=== PATIENT | female | born 1995 | race Hispanic/Latino ===

== ENCOUNTER 2017-12-29 08:58 | Outpatient (CLI) | payer MEDICAID ==
--- NOTE | 2017-12-29 11:30 | ULT ---
PELVIS SONOGRAM: HISTORY: Right pelvic pain. TECHNIQUE: Transabdominal imaging with duplex evaluation. FINDINGS: The urinary bladder is unremarkable. The uterus has a homogeneous echotexture and is 7.2 cm. The en dometrium is 0.2 cm. No free fluid. The right ovary is 3.2 cm and the left is 3.8 cm. Each contains follicles and demonstrate good color and spectral Doppler flow. IMPRESSION: Normal pelvic sonogram. POS: [facility]
== END 2017-12-29 08:59 | disposition home or self-care (01) ==
LOC: ULT 08:58
DX: R10.31 Right lower quadrant pain (principal); Z87.42 Personal history of other diseases of the female genital tract
CPT/HCPCS: 76856; 93976

== ENCOUNTER 2018-01-02 12:22 | Emergency (ER) | payer MEDICAID, SELFPAY ==
[~2018-01-02 12:22] MED LIST: ISOVUE-370 76%-LOCM 1 ML ONE
[2018-01-02 13:55] LABS: Mean Corpuscular HGB CONC 31.3 g/dL (32.0-36.0); Mean Corpuscular Hemoglobin 22.4 pg (27.0-31.0); Mean Corpuscular Volume 71.5 fL (78.0-98.0); Mean Platelet Volume 9.5 fL (7.4-10.4); Platelet Count 279 thou/uL (130-400); RBC Distribution Width 15.7 % (11.5-14.5); Red Blood Cell (RBC) Count 4.89 mill/uL (4.20-5.40); White Blood Cell (WBC) Count 6.4 thou/uL (4.8-10.8)
[2018-01-02 14:05] LABS: ALT (SGPT) 11 U/L (8-55); AST (SGOT) 14 U/L (5-34); Albumin 4.8 g/dL (3.5-5.0); Alkaline Phosphatase 101 U/L (40-150); Anion Gap 11 mmol/L (10-20); BUN (Urea Nitrogen) 13 mg/dL (7.0-18.7); Bilirubin, Total 0.4 mg/dL (0.2-1.2); Calc. Creatinine Clearance 0 mL/min (70-130); Calcium 9.6 mg/dL (7.8-10.44); Carbon Dioxide 25 mmol/L (22-29); Chloride 104 mmol/L (98-107); Estimated GFR-MDRD 81; Globulin 3.8 g/dL (2.4-3.5); Glucose 86 mg/dL (70-105); Lipase 9 U/L (8-78); Potassium 3.6 mmol/L (3.5-5.1); Protein, Total 8.6 g/dL (6.0-8.3); Sodium 136 mmol/L (136-145)
[2018-01-02 14:35] LABS: Bilirubin Negative (Negative); Blood, Urine Moderate (Negative); Clarity CLEAR (Clear); Glucose, Urine (Dipstick) Negative (Negative); Leukocyte Negative (Negative); Nitrite Negative (Negative); Protein, Urine (Dipstick) Negative (Neg-Trace); Specific Gravity, Urine 1.008 (1.002-1.036); Urobilinogen 0.2 mg/dL (0.2-1.0); pH, Urine 6.5 (5.0-9.0)
[2018-01-02 14:36] LABS: #Basophils 0.1 thou/uL (0.0-0.2); #Lymphocytes 2.4 thou/uL (1.20-3.40); #Monocytes 0.6 thou/uL (0.11-0.59); #Neutrophils 3.4 thou/uL (1.40-6.50); %Basophils 1.2 % (0.0-1.0); %Eosinophils 0.3 % (0.0-10.0); %Lymphocytes 37.8 % (21.0-51.0); %Monocytes 8.5 % (0.0-10.0); %Neutrophils 52.2 % (42.0-75.0); Anisocytosis SLIGHT = 6-15 cells (100X) (0-5/hpf); Hypochromia SLIGHT = 6-15 cells (100X) (0-5/hpf); MDiff Complete? YES; Microcytosis SLIGHT = 6-15 cells (100X) (0-5/hpf); Ovalocytes SLIGHT = 2-5 cells (100X) (0-1/hpf); PLT Morphology Comment Appears Adequate
[2018-01-02 14:38] LABS: Bacteria/HPF None Seen HPF (None Seen); Hyaline Casts/LPF 0-3 HYALINE CAST LPF (0-3 Hyaline); Pathc Cast-AUWi Flag 0.29 (0-2.49); Pregnancy Test - Urine (BHCG) Negative (Negative); Pregu Control Background? CLEAR/WHITE (CLR/WHITE); Pregu Control Bar Appear? YES (CONTROL BAR); Specific Gravity 1.008 (1.002-1.036); Squamous Epithelial 0-3 HPF (0-3); WBC/HPF None Seen HPF (0-3)
[2018-01-02] MEDS ORDERED: Ketorolac Tromethamine 30 MG/ML VIAL ONE (14:41)
[2018-01-02] MEDS ORDERED: Ketorolac Tromethamine 60 MG/2 ML VIAL ONE (14:42)
--- NOTE | 2018-01-02 16:16 | ULT ---
GALLBLADDER ULTRASOUND: Date: 01/02/18 HISTORY: Right upper quadrant pain. FINDINGS: Real-time imaging of the right upper quadrant shows a normal appearing gallbladder. Common duct is 2. 0 mm. Technologist reports a negative ultrasound Quiroz's sign. Visualized liver parenchyma shows no focal abnormalities. Right kidney is normal in size and not obstructed. Pancreas region is fairly wel l imaged and appears unremarkable. IMPRESSION: Unremarkable gallbladder ultrasound. POS: [facility]
[2018-01-02] MEDS ORDERED: Famotidine/PF 20 mg/2ml Vial ONE (17:03)
[2018-01-02] MEDS ORDERED: Dicyclomine 20 MG TAB ONE (17:03)
[2018-01-02] MEDS ORDERED: Ondansetron HCl/PF 4 MG/2 ML Vial ONE (17:03)
--- NOTE | 2018-01-02 20:25 | CT ---
NONCONTRAST ENHANCED CT IMAGES ABDOMEN AND PELVIS 01/02/18 HISTORY: Abdominal pain. Noncontrast enhanced CT images abdomen and pelvis obtained. Oral and IV contrast was not given. This does decrease the sensitivity for detection of pathology. If there is concern for appendicitis, repea t exam with oral and IV contrast may be of use. The lung bases are unremarkable. The liver, spleen, gallbladder, and pancreas are unremarkable. Adrenal glands are unremarkable. The k idneys contain some subtle areas of pyramidal renal calcifications but no evidence of definite calcul i or evidence of obstruction. The small bowel is unremarkable. The appendix is not visualized. The co cristy is not distended. The pelvis is otherwise unremarkable. IMPRESSION: No evidence of renal calculi seen. No evidence of hydroureteronephrosis seen. The appendix is not vis ualized to comment upon. POS: [facility]
--- NOTE | 2018-01-02 21:41 | CT ---
CONTRAST ENHANCED CT IMAGES ABDOMEN AND PELVIS 01/02/18 IV and oral contrast was given. The lung bases are unremarkable. No evidence of free intraperitoneal air seen. The liver and spleen are unremarkable. The gallbladder and pancreas are unremarkable. Adrenal glands and kidneys are unremarkable. No dilated loops of small bowel seen. A normal appendix is visualized and is filled with oral contras t. No significant evidence of acute intra-abdominal or pelvis pathology is seen. POS: [facility]
== END 2018-01-02 22:01 | disposition home or self-care (01) ==
LOC: ERS 12:22
DX: R10.31 Right lower quadrant pain (principal); F41.9 Anxiety disorder, unspecified; F32.9 Major depressive disorder, single episode, unspecified
CPT/HCPCS: 36415; 74177; 76705; 80053; 81003; 81015; 81025; 83690; 85025; 96361; 96372; 96374; 96375; J1885; J2405; S0028